=== PATIENT | female | born 1980 ===

== ENCOUNTER 2022-12-25 08:53 | Day surgery (SDC) | payer BC ==
[~2022-12-25] VITALS: Ht 170.2 cm; Wt 73.9 kg
[2022-12-25 09:14] VITALS: BP 147/94; PULSE 106; TEMP 98
[2022-12-25] MEDS ORDERED: ALYACEN 1/35 351 TAB PO (09:18)
[2022-12-25] MEDS ORDERED: WELLBUTRIN XL300 M1 PO (09:19)
[2022-12-25] MEDS ORDERED: BUSPAR10 MG PO (09:19)
[2022-12-25 11:05] VITALS: BP 137/77; PULSE 86; TEMP 97.7
--- NOTE | 2022-12-25 11:05 | NUR ---
PATIENT AMBULATED TO CHAIR WITH STANDBY ASSIST. PATIENT ALERT AND ORIENTED, DENIES PAIN AND NAUSEA. BREATHING REGULAR AND UNLABORED. NURSE HANDOFF COMPLETED IN ROOM. SEE CHART FOR VITAL SIGNS. PATIENT HAD A MUFFIN AND APPLE JUICE, BOTH TOLERATED WELL. AT 1112 PATIENT AMBULATED TO THE RESTROOM TO VOID. GAIT STEADY.
[2022-12-25 11:15] VITALS: BP 123/74; PULSE 76
[2022-12-25 11:30] VITALS: BP 124/76; PULSE 80
--- NOTE | 2022-12-25 11:30 | NUR ---
PATIENT ALERT AND ORIENTED, DENIES PAIN AND NAUSEA. DISCHARGE TEACHING COMPLETED WITH PRINTED EDUCATION AND INSTRUCTIONS SENT HOME WITH PATIENT. PATIENT VERBALIZED UNDERSTANDING OF TEACHING. MET WITH PATIENT AND DISCUSSED THE PROCEDURE. IV REMOVED AND PATIENT DISCHARGED HOME WITH AN TRANSPORT.
== END 2022-12-25 11:54 | disposition home or self-care (01) ==
LOC: SDCO 08:53
DX: R10.32 Left lower quadrant pain (principal); R63.4 Abnormal weight loss; K62.89 Other specified diseases of anus and rectum; K64.4 Residual hemorrhoidal skin tags
CPT/HCPCS: J2704; J7120

== ENCOUNTER 2023-12-15 02:19 | Emergency (ER) | payer BC ==
[~2023-12-15] VITALS: Ht 170.2 cm; Wt 77.3 kg
[~2023-12-15 02:19] MED LIST: ALYACEN 1/35 351 TAB PO; BUSPAR10 MG PO; WELLBUTRIN XL300 M1 PO
[2023-12-15 02:20] VITALS: TEMP 98.2
[2023-12-15] MEDS ORDERED: NS 1,000 ML IV ONE ×2 (02:30→03:30)
[2023-12-15] MEDS ORDERED: Ondansetron 4 MG/2 ML VIAL IV ONE ×2 (02:30→03:45)
[2023-12-15 03:00] LABS: COLLECTION METHOD CLEAN CATCH
[2023-12-15 03:05] LABS: BASO # 0.1 K/mm3 (0.0-0.2); BASO % 0.4 % (0.0-2.0); EOS # 0.2 K/mm3 (0.0-0.7); EOS % 1.1 % (0.0-4.0); GRAN % 84.6 % (42.2-75.2); HEMATOCRIT 45.8 % (37.0-47.0); HEMOGLOBIN 15.6 g/dl (12.5-16.0); LYMPH # 1.2 K/mm3 (1.2-3.4); LYMPH % 8.1 % (20.0-51.0); MEAN CELL VOLUME 92 fl (80.0-100.0); MEAN CORPUSCULAR HEMOGLOBIN 32 pg (27-31); MEAN CORPUSCULAR HGB CONC 34 g/dl (33.0-37.0); MEAN PLATELET VOLUME 10.1 fl (7.4-10.4); MONO # 0.8 K/mm3 (0.1-0.6); MONO % 5.3 % (1.7-9.3); PLATELET COUNT 331 K/mm3 (130-400); RED BLOOD COUNT 4.96 M/mm3 (4.10-5.30); REDCELL DISTRIBUTION WIDTH-CV 11.9 % (11.5-14.5)
[2023-12-15 03:11] LABS: PH 5.5 (5.0-8.5); URINE APPEARANCE CLOUDY (CLEAR/HAZY); URINE BLOOD NEGATIVE (NEGATIVE); URINE COLOR Dark Yellow (YELLOW); URINE GLUCOSE NEGATIVE (NEGATIVE); URINE KETONE 3+ (NEGATIVE); URINE NITRATE NEGATIVE (NEGATIVE); URINE PROTEIN(semi-quant) 1+ (NEGATIVE)
[2023-12-15 03:21] LABS: MUCOUS PRESENT (NOT PRESENT); URINE BACTERIA MANY /hpf (NONE SEEN)
[2023-12-15 03:27] LABS: ALBUMIN 3.7 gm/dL (3.5-5.0); BILIRUBIN,TOTAL 1.6 mg/dL (0.2-1.2); CALCIUM 9.5 mg/dL (8.4-10.2); CREATININE, serum 0.89 mg/dL (0.57-1.11); POTASSIUM 3.8 mmol/L (3.5-4.5); TOTAL PROTEIN 7.6 gm/dL (6.2-8.1)
[2023-12-15] MEDS ORDERED: NS 50 ML IV SCH (03:44)
[2023-12-15] MEDS ORDERED: Iohexol 300 - 100 ML VIAL IV ONE (03:44)
[2023-12-15 04:10] LABS: TRICYCLIC ANTIDEPRESS URINE NEGATIVE (NEGATIVE)
[2023-12-15] MEDS ORDERED: metroNIDAZOLE 100 ML IV ONE (04:15)
[2023-12-15 04:29] LABS: ACETAMINOPHEN < 7.0 ug/mL (10-30)
[2023-12-15 04:33] LABS: SALICYLATE < 5.0 mg/dL (15.0-30.0)
[2023-12-15] MEDS ORDERED: diphenhydrAMINE 50 MG/ML 1 ML VIAL IV ONE (05:15)
[2023-12-15] MEDS ORDERED: NS 500 ML IV ONE (05:15)
[2023-12-15] MEDS ORDERED: FLAGYL500 MG PO (05:41)
[2023-12-15] MEDS ORDERED: ZOFRAN ODT4 MG PO (05:41)
[2023-12-15 06:14] VITALS: BP 134/79; PULSE 115
== END 2023-12-15 06:14 | disposition home or self-care (01) ==
LOC: COL.ER 02:19
PROVIDERS: Emergency Medicine
DX: K52.9 Noninfective gastroenteritis and colitis, unspecified (principal)
CPT/HCPCS: J0780; J1200; J1836; J2405; J7030; J7040; Q9967